=== PATIENT | male | born 1940 | race Asian ===

== ENCOUNTER 2018-12-28 14:40 | Inpatient (IN) | payer MEDICARE ==
[2018-12-28 15:37] LABS: % BASOPHILS 0.9 % (0.0-2.0); % EOSINOPHILS 1.7 % (0.0-5.0); % LYMPHOCYTES 31.8 % (20.0-50.0); % MONOCYTES 7.2 % (2.0-10.0); % NEUTROPHILS 58.4 % (40.0-80.0); EOSINOPHILE ABSOLUTE 0.1 Th/cmm (0.1-0.4); HEMATOCRIT 33.1 % (41.0-60); LYMPHOCYTE ABSOLUTE 1.7 Th/cmm (1.5-3.0); MEAN CELL VOLUME 94.3 fl (80-99); MEAN CORPUSCULAR HEMOGLOBIN 31.3 pg (27.0-31.0); MEAN CORPUSCULAR HGB CONC 33.2 pg (28.0-36.0); MEAN PLATELET VOLUME 6.5 fl; MONOCYTE ABSOLUTE 0.4 Th/cmm (0.3-1.0); NEUTROPHILE ABSOLUTE 3.2 Th/cmm (1.8-8.0); PLATELET COUNT 191 Th/cmm (150-400); RED BLOOD COUNT 3.51 Mil/cmm (3.80-5.80); RED CELL DISTRIBUTION WIDTH 12.1 % (11.5-20.0); WHITE BLOOD COUNT 5.4 Th/cmm (4.8-10.8)
--- NOTE | 2018-12-28 15:45 | ED Physician Chart ---
ED Chief Complaint/HPI - Patient Information Date Seen:: 12/28/18 Time Seen:: 14:40 Chief Complaint:: Depression History of Present Illness:: onset x 3 days of depression and sadness; no report of trauma, H/As, S/T, neck pain, cough, C/P, SIs, SOB, Abd. Pain, A/N/V/D/C, fever, chills, or urinary s/s Allergies:: Allergies Allergy/AdvReac Type Severity Reaction Status Date / Time No Known Allergies Allergy Verified 12/28/18 15:26 Vitals:: Vital Signs - 8 hr 12/28/18 14:40 Temp 98.4 F HR 69 RR 16 BP 140/70 O2 Sat % 97 Historian:: Patient, EMS Review:: Nurse's Note Reviewed, Old Chart Reviewed, EMS run form Reviewed ED Review of Systems - Review of Systems General/Constitutional: No fever, No chills, No weight loss, No weakness, No diaphoresis, No edema, No loss of appetite Skin: No skin lesions, No rash, No bruising Head: No headache, No light-headedness Eyes: No loss of vision, No pain, No diplopia ENT: No earache, No nasal drainage, No sore throat, No tinnitus Neck: No neck pain, No swelling, No thyromegaly, No stiffness, No mass noted Cardio Vascular: No chest pain, No palpitations, No PND, No orthopnea, No edema Pulmonary: No SOB, No cough, No sputum, No wheezing GI: No nausea, No vomiting, No diarrhea, No pain, No melena, No hematochezia, No constipation, No hematemesis G/U: No dysuria, No frequency, No hematuria, No nacturia Musculoskeletal: No bone or joint pain, No back pain, No muscle pain Endocrine: No polyuria, No polydipsia Psychiatric: Prior psych history, Depression, Anxiety, No suicidal ideation, No homicidal ideation, No auditory hallucination, No visual hallucination Hematopoietic: No bruising, No lymphadenopathy Allergic/Immuno: No urticaria, No angioedema Neurological: No syncope, No focal symptoms, No weakness, No paresthesia, No headache, Seizure, No dizziness, Confusion, No vertigo ED Past Medical History - Past Medical History Obtainable: Yes Past Medical History: HTN, Dyslipidemia, PUD/GERD, Seizures, Dementia Family History: HTN Social History: Non Smoker, No Alcohol, No Drug Use, Single, Care Facility Surgical History: None Psychiatricy History: Depression, Dementia Medication: Reviewed Family Medical History - Family Member Father History Unknown: Yes ED Physical Exam - Physical Examination General/Constitutional: Awake, Well-developed, well-nourished, Alert, No distress, GCS 15, Non-toxic appearing, Ambulatory Head: Atraumatic Eyes: Lids, conjuctiva normal, PERRL, EOMI Skin: Nl inspection, No rash, No skin lesions, No ecchymosis, Well hydrated, No lymphadenopathy ENMT: External ears, nose nl, TM canals nl, Nasal exam nl, Lips, teeth, gums nl , Oropharynx nl, Tonsils nl Neck: Nontender, Full ROM w/o pain, No JVD, No nuchal rigidity, No bruit, No mass, No stridor Respiratory: Nl effort/Exclusion, Clear to Auscultation, No Wheeze/Rhonchi/Rales Cardio Vascular: RRR, No murmur, gallop, rubs, NL S1 S2, Carotid/Femoral/Distal pulses equal bilaterally GI: No tenderness/rebounding/guarding, No organomegaly, No hernia, Normal BS's, Nondistended, No mass/bruits, No McBurney tenderness : No CVA tenderness Extremities: No tenderness or effusion, Full ROM, normal strength in all extremities, No edema, Normal digits & nails Neuro/Psych: Alert/oriented, DTR's symmetric, Normal sensory exam, Normal motor strength, Judgement/insight normal, Mood normal, Normal gait, No focal deficits Other Neuro/Psych comments:: Disoriented and Confused; + Psychomotor Retardation; no SIs; Mood/Affect: Stable Misc: Normal back, No paraspinal tenderness ED Labs/Radiology/EKG Results - Lab Results Results: Laboratory Tests 12/28/18 15:12 WBC 5.4 RBC 3.51 L Hgb 11.0 L Hct 33.1 L MCV 94.3 MCH 31.3 H MCHC Differential 33.2 RDW 12.1 Plt Count 191 MPV 6.5 Neutrophils % 58.4 Lymphocytes % 31.8 Monocytes % 7.2 Eosinophils % 1.7 Basophils % 0.9 - Radiology Results Comments:: NAD - EKG Interpretations EKG Time:: 15:39 Rate & Rhythm: 71; NSR Comments:: non-specific st-t changes ED Septic Shock - . Is Septic Shock (SBP<90, OR Lactate>4 mmol\L) present?: No - <6hrs of presentation: Vital Signs: Vital Signs - 8 hr 12/28/18 14:40 Temp 98.4 F HR 69 RR 16 BP 140/70 O2 Sat % 97 ED Reassessment (Disposition) - Reassessment Reassessment Condition:: Improved - Diagnosis Diagnosis:: Depression; Dementia; Medical Clearance; Hyperglycemia; Uncontrolled DM; Anemia ; Hyponatremia; Hypocalcemia; Renal Insuffiency; Pre-Renal Azotemia; Hypoalbuminemia; Dehydration - Aftercare/Follow up Instructions Aftercare/Follow-Up Instructions:: Counseled pt regarding lab results/diagnosis & need follow up, Counseled pt & family regarding lab results/diagnosis & need follow up - Patient Disposition Discharge/Transfer:: Acute Care w/in this hosp Accepting Physician:: Dr. Solares Time Called:: 1600 Time Responded:: 16:00 Admitted to:: Telemetry Spoke to:: Dr. Solares Admitting Medical Physician:: Dr. Solares Condition at Disposition:: Stable, Improved
[2018-12-28 15:51] LABS: ALB/GLOB RATIO 1.4 (1.0-1.8); ALBUMIN 3.7 gm/dL (4.2-5.5); ALKALINE PHOSPHATASE 66 U/L (34-104); ANION GAP 11.1 (7.0-16.0); BILIRUBIN,TOTAL 0.5 mg/dL (0.3-1.0); BUN - UREA NITROGEN 42 mg/dL (7-25); CALCIUM SERUM 8.5 mg/dL (8.6-10.3); CARBON DIOXIDE 27.5 mEq/L (21.0-31.0); CHLORIDE 99 mEq/L (98-107); CHOLESTEROL 163 mg/dL (<200); CREATININE - SERUM 3.4 mg/dL (0.7-1.3); GLUCOSE 429 mg/dL (70-105); HDL -HIGH DENSITY LIPOPROTEIN 70 mg/dL (23-92); POTASSIUM SERUM 4.6 mEq/L (3.5-5.1); SALICYLATES (ASPIRIN) < 25.0 mg/L (30.0-100.0); SGOT 16 U/L (13-39); SGPT/ALT 10 U/L (7-52); SODIUM SERUM 133 mEq/L (136-145); TOTAL PROTEIN,SERUM 6.3 gm/dL (6.0-8.3); TRIGLYCERIDES 107 mg/dL (<150)
[2018-12-28 16:01] LABS: ACETAMINOPHEN < 10.0 ug/mL (10.0-30.0)
[2018-12-28] MEDS ORDERED: INSULIN HUMAN REGULAR 100 UNITS/ML UNIT SUBQ ONE (16:34)
[2018-12-28] MEDS ORDERED: INSULIN HUMAN REGULAR 100 UNITS/ML UNIT ONE (17:38)
[2018-12-28] MEDS ORDERED: Dextrose 50% 50 mL Abboject IVP ONE ×2 (19:33→20:08)
[2018-12-28] MEDS ORDERED: Insulin Detemir 100 units/mL 10mL Vial SUBQ SCH (21:02)
[2018-12-28] MEDS ORDERED: INSULIN HUMAN REGULAR 100 UNITS/ML UNIT SUBQ SCH (21:02)
[2018-12-28 21:04] VITALS: BP 151/79
[2018-12-29] MEDS ORDERED: Dextrose 50% 50 mL Abboject IVP PRN (01:26)
[2018-12-29] MEDS ORDERED: GLUCAGON HCl 1 MG KIT IM PRN (01:26)
[2018-12-29 06:45] LABS: % BASOPHILS 0.8 % (0.0-2.0); % EOSINOPHILS 2.5 % (0.0-5.0); % LYMPHOCYTES 33.3 % (20.0-50.0); % MONOCYTES 6.5 % (2.0-10.0); % NEUTROPHILS 56.9 % (40.0-80.0); EOSINOPHILE ABSOLUTE 0.2 Th/cmm (0.1-0.4); HEMATOCRIT 33.1 % (41.0-60); HEMOGLOBIN 11.3 gm/dL (12-16); MEAN CELL VOLUME 92.4 fl (80-99); MEAN CORPUSCULAR HEMOGLOBIN 31.6 pg (27.0-31.0); MEAN CORPUSCULAR HGB CONC 34.2 pg (28.0-36.0); MEAN PLATELET VOLUME 6.3 fl; MONOCYTE ABSOLUTE 0.4 Th/cmm (0.3-1.0); NEUTROPHILE ABSOLUTE 3.4 Th/cmm (1.8-8.0); PLATELET COUNT 197 Th/cmm (150-400); RED BLOOD COUNT 3.58 Mil/cmm (3.80-5.80)
[2018-12-29 07:01] LABS: ALB/GLOB RATIO 1.4 (1.0-1.8); ALBUMIN 3.9 gm/dL (4.2-5.5); ALKALINE PHOSPHATASE 56 U/L (34-104); ANION GAP 12.2 (7.0-16.0); BILIRUBIN,TOTAL 0.6 mg/dL (0.3-1.0); BUN - UREA NITROGEN 39 mg/dL (7-25); CARBON DIOXIDE 28.3 mEq/L (21.0-31.0); CHLORIDE 105 mEq/L (98-107); CHOLESTEROL 164 mg/dL (<200); CREATININE - SERUM 3.2 mg/dL (0.7-1.3); HDL -HIGH DENSITY LIPOPROTEIN 75 mg/dL (23-92); POTASSIUM SERUM 4.5 mEq/L (3.5-5.1); SGOT 16 U/L (13-39); SGPT/ALT 9 U/L (7-52); SODIUM SERUM 141 mEq/L (136-145); TOTAL PROTEIN,SERUM 6.6 gm/dL (6.0-8.3); TRIGLYCERIDES 85 mg/dL (<150)
[2018-12-29 07:08] LABS: GLUCOSE 188 mg/dL (70-105)
--- NOTE | 2018-12-29 08:20 | Diagnostic Imaging Report ---
Chest x-ray single view History: ALOC Comparison: None The heart size is normal. No focal pulmonary parenchymal processes. No hilar or mediastinal abnormalities. Impression: No acute abnormalities
[2018-12-29] MEDS: INSULIN ASPART SLIDING SCALE 100 UNITS/ML UNIT SUBQ SCH ×4 (08:21→20:59)
[2018-12-29 08:31] LABS: URINE SOURCE CLEAN C
[2018-12-29 08:37] LABS: URINE BILIRUBIN NEGATIVE (NEGATIVE); URINE BLOOD TRACE (NEGATIVE); URINE GLUCOSE (UA) 500 mg/dL (NEGATIVE); URINE KETONE NEGATIVE (NEGATIVE); URINE LEUKOCYTE ESTERASE NEGATIVE (NEGATIVE); URINE MICROSCOPIC INDICATED? YES; URINE NITRATE NEGATIVE (NEGATIVE); URINE PROTEIN 100 mg/dL (NEGATIVE); URINE UROBILINOGEN 0.2 E.U./dL (0.2 - 1.0)
[2018-12-29 08:46] LABS: URINE CLARITY CLEAR (CLEAR); URINE COLOR YELLOW
[2018-12-29 08:47] LABS: URINE BACTERIA NONE SEEN /hpf (NONE SEEN); URINE EPITHELIAL CELLS RARE /lpf (FEW); URINE RBC 0-2 /hpf (0-5); URINE WBC 0-2 /hpf (0-5)
[2018-12-29 08:49] LABS: AMPHETAMINE URINE NEGATIVE (NEGATIVE); BARBITURATES URINE NEGATIVE (NEGATIVE); BENZODIAZEPINES QUAL URINE POSITIVE (NEGATIVE); CANNABINOID THC NEGATIVE (NEGATIVE); COCAINE METABOLITE QUAL URINE NEGATIVE (NEGATIVE); METHADONE URINE NEGATIVE (NEGATIVE); METHAMPHETAMINES QUAL URINE NEGATIVE (NEGATIVE); OPIATES (MORPHINE) QUAL. URINE NEGATIVE (NEGATIVE); PHENCYCLIDINE (PCP) URINE NEGATIVE (NEGATIVE); TRICYCLICS (TCA) QUAL. URINE NEGATIVE (NEGATIVE)
--- NOTE | 2018-12-29 08:53 | Consultation ---
DATE OF CONSULTATION: 12/29/2018 PSYCHIATRIC EVALUATION AND EXAMINATION PHYSICIAN REQUESTING CONSULTATION: Dr. Solares. REASON FOR CONSULTATION: Depression and psychosis. HISTORY OF PRESENT ILLNESS: This patient is a 78-year-old male, resident of [facility] in [place]. Information obtained by directly interviewing the patient as well as reviewing the admission papers and they are reliable. JUSTIFICATION OF HOSPITALIZATION: The patient is admitted for uncontrolled diabetes. HISTORY OF PRESENT ILLNESS: Is significant for the patient is reported to have been feeling depressed at least for the past 1 year. The patient is having difficult time to cope with the stress and the patient has been getting easily irritable and angry and is talking about the Armenians that have been bothering him. The patient is stating that he is getting depressed because of the Armenians because of they gave him a hard time. The patient's coping skills at this time are noted to be extremely poor. Sleep is noted to be poor. Appetite is also noted to be very poor. PAST PSYCHIATRIC HISTORY: Details are not known. MEDICAL HISTORY: Significant for diabetes mellitus. SOCIAL HISTORY: The patient is a resident of the [facility] facility. SEXUAL ABUSE HISTORY: None. PHYSICAL OR SEXUAL ABUSE HISTORY: None. LEGAL PROBLEMS: None at this time. MENTAL STATUS EXAMINATION: The patient is a 78-year-old, looking his stated age, superficially cooperative. Speech is noted to be coherent and relevant, but is getting easily irritable. Attention span and concentration are noted to be fair at this time. The patient's coping skills are noted to be extremely poor. The patient has short-term and long-term memory deficit, but the patient is able to give some history, but he is focused on the Armenians at this time. The patient is not presenting with any threats to harm self or others. DIAGNOSTIC IMPRESSION: AXIS I: Major depressive disorder, recurrent and moderate, with psychotic symptoms. IB: Dementia and behavioral change, secondary trait. AXIS II: None. AXIS III: As per Dr. Solares. IMMEDIATE TREATMENT PLAN: The patient is going to be continued on the Lexapro and Aricept and Namenda. The patient is going to be started on the low dose of the Seroquel and followed up with the supportive therapy. Thank you, Dr. Solares for allowing me to participate in the care of the patient. JOB# [id number]
[2018-12-29] MEDS ORDERED: Ferrous Sulfate 325 MG TAB PO SCH (09:00)
[2018-12-29] MEDS ORDERED: Sodium Chloride 0.9% 1,000 ML IV SCH (09:11)
--- NOTE | 2018-12-29 10:23 | Diagnostic Imaging Report ---
Renal ultrasound HISTORY: Abnormal renal function tests. COMPARISON: None Technique: Sonography of the kidneys and urinary bladder was performed in multiple planes. FINDINGS: The right kidney measures 8.1 x 3.7 cm. The left kidney measures 9.1 x 4.7 cm. There is mild increased echogenicity of the kidneys. No evidence of focal lesions. Prevoid bladder volume is 97 mL. There is suggestion of mild urinary bladder wall thickening. IMPRESSION: No evidence of hydronephrosis. Mild increased echogenicity of the kidneys which may be due to underlying medical renal disease. Mild urinary bladder wall thickening. Inflammatory or infiltrative process cannot be excluded. Please correlate clinically. Prevoid bladder volume of 97 mL. Patient was unable to void.
--- NOTE | 2018-12-29 13:34 | History & Physical ---
ADMIT DATE: 12/28/2018 CHIEF COMPLAINT: Depression. HISTORY OF PRESENT ILLNESS: The patient is a 78-year-old gentleman who resides at [facility] with history of type 2 diabetes without complications, hyperlipidemia, essential hypertension, unspecified dementia without behavioral disturbance, seizure disorder, generalized anxiety, and major depressive disorder, insomnia, who apparently was noted to be depressed for the last few days at the facility. The patient was transferred for possible Geropsych admission; however, on initial assessment, he was noted to have a glucose level of 429 and a BUN and creatinine of 42/3.4. Per medical records, there is no history of renal insufficiency and per patient's account, there is also no history of renal issues. The patient has been admitted to the medical/surgical floor to control his diabetes and to workup his renal insufficiency. The patient appears to be comfortable, able to carry a conversation and denies any anxiety or depression at this time. He also denies any suicidal ideation. PAST MEDICAL HISTORY: As noted above. PAST SURGICAL HISTORY: None listed. FAMILY HISTORY: Likely noncontributory to this admission. SOCIAL HISTORY: No tobacco, ETOH, or illicit drug usage. [facility] at the detention under the care of Dr. Elkins. ALLERGIES: NKDA. OUTPATIENT MEDICATIONS: Clonidine 0.1 q.6 hours, Colace 100 mg every day, Aricept 10 at bedtime, Lexapro 10 every day, fenofibrate 54 mg every day, iron sulfate 325 b.i.d., Keppra 500 mg b.i.d., lorazepam 0.5 b.i.d., Namenda XR 7 mg at bedtime. REVIEW OF SYSTEMS: CONSTITUTIONAL: He denies any fever, chills, any recent weight loss. CARDIOVASCULAR: He denies any angina or chest pain. He also denies any palpitations. PULMONARY: No cough, no phlegm production. Denies any shortness of breath. GASTROINTESTINAL: No bowel habit changes. GENITOURINARY: No bladder habit changes. NEUROLOGIC: No changes in vision, no headaches. Denies any syncope or vertigo. MUSCULOSKELETAL: He denies any muscular pain or joint pain. PSYCH: Again, he denies any current depression, suicidal ideation, or anxiety. PHYSICAL EXAMINATION: VITAL SIGNS: Temperature 96.7, pulse 78-85, respirations 18-19, BP 132/76, satting 97-98% on room air. GENERAL: Well-developed, thin gentleman, lying in bed, currently undergoing a renal ultrasound. He is awake, alert and oriented x 2, able to answer questions appropriately. HEAD AND NECK: Normocephalic, atraumatic. Pupils are reactive to light. Extraocular movements are intact. Oropharynx is moist and clear. NECK: There is no JVD or LAD. CARDIAC: Regular rate and rhythm without any murmurs. LUNGS: Clear to auscultation bilaterally. ABDOMEN: Soft, supple, nontender, nondistended, normoactive bowel sounds. EXTREMITIES: Lower extremity, there is no pedal edema. NEUROLOGIC: Grossly intact, nonfocal, although full exam could not be done at this time. LABORATORY DATA: On admission, white count 5.4, H and H 11 with a platelet count of 191. Sodium 133, BUN 42, creatinine 3.4, glucose 329, otherwise chemistry was within normal limits. Calcium 8.5. LFTs were within normal limits. Albumin 3.7. TSH 1.16. UA was positive for protein and glucose. Urine toxicology was essentially negative. DIAGNOSTICS: Chest x-ray shows no acute abnormalities. EKG, sinus rhythm at 71, no ST wave changes. ASSESSMENT: 1. History of type 2 diabetes, currently out of control. 2. Renal insufficiency -- likely chronic in nature given his history of diabetes and hypertension (diabetic and hypertensive nephropathy), versus less likely 2ry to acute onset 2ry to dehydration. 3. Hyponatremia. 4. Anemia. 5. Proteinuria. 6. History of hyperlipidemia. 7. History of unspecified dementia without behavioral disturbance. 8. History of seizure disorder. 9. History of generalized anxiety. 10. History of major depressive disorder. PLAN: The patient has been admitted to the medical floor and has been placed on IV fluids and will undergo renal workup including kidney ultrasound and a 24-hour urine collection for protein and creatinine. I have also placed the patient on detemir insulin 10 units at bedtime with a regular insulin sliding scale. An A1c and lipid panel also have been asked for. In the interim, the patient will remain on his other medications as scheduled and given his history of recent depression, a Psychiatry consult will be asked for as well as a renal consult given the above-mentioned findings (i.e., renal insufficiency). [facility]# [id number] MTDD
[2018-12-29] MEDS ORDERED: MEMANTINE HCL 7 MG PO SCH (21:00)
[2018-12-29] MEDS: D5-0.45NS 1,000 ML IV SCH (21:06)
[2018-12-30 05:54] LABS: % BASOPHILS 1.2 % (0.0-2.0); % EOSINOPHILS 3.1 % (0.0-5.0); % LYMPHOCYTES 39.7 % (20.0-50.0); % MONOCYTES 6.9 % (2.0-10.0); % NEUTROPHILS 49.1 % (40.0-80.0); BASOPHILE ABSOLUTE 0.1 Th/cumm (0-0.2); EOSINOPHILE ABSOLUTE 0.2 Th/cmm (0.1-0.4); HEMATOCRIT 31.2 % (41.0-60); HEMOGLOBIN 10.6 gm/dL (12-16); LYMPHOCYTE ABSOLUTE 2.2 Th/cmm (1.5-3.0); MEAN CELL VOLUME 92.9 fl (80-99); MEAN CORPUSCULAR HEMOGLOBIN 31.6 pg (27.0-31.0); MEAN PLATELET VOLUME 6.3 fl; MONOCYTE ABSOLUTE 0.4 Th/cmm (0.3-1.0); NEUTROPHILE ABSOLUTE 2.7 Th/cmm (1.8-8.0); PLATELET COUNT 197 Th/cmm (150-400); RED BLOOD COUNT 3.36 Mil/cmm (3.80-5.80); RED CELL DISTRIBUTION WIDTH 12.1 % (11.5-20.0); WHITE BLOOD COUNT 5.6 Th/cmm (4.8-10.8)
[2018-12-30] MEDS: INSULIN ASPART SLIDING SCALE 100 UNITS/ML UNIT SUBQ SCH (06:34)
[2018-12-30] MEDS: D5-0.45NS 1,000 ML IV SCH (06:56)
[2018-12-30] MEDS: Fenofibrate, Micronized 134 mg Cap PO SCH (08:12)
[2018-12-30 08:26] LABS: ANION GAP 13.2 (7.0-16.0); BUN - UREA NITROGEN 40 mg/dL (7-25); CALCIUM SERUM 8.3 mg/dL (8.6-10.3); CARBON DIOXIDE 25.8 mEq/L (21.0-31.0); CHLORIDE 106 mEq/L (98-107); GLUCOSE 126 mg/dL (70-105); MAGNESIUM 2.3 mg/dL (1.9-2.7); SODIUM SERUM 141 mEq/L (136-145)
--- NOTE | 2018-12-30 11:47 | Internal Medicine Prog Note ---
Internal Medicine Subjective - Subjective Service Date: 12/30/18 (COMFORTABLE, PER STAFF, PT EATING WELL) Patient seen and examined:: with staff Patient is:: awake Per staff patient has:: no adverse event, eating well Internal Medicine Objective - Results Result Diagrams: 12/30/18 05:14 12/30/18 05:14 Recent Labs: Laboratory Last Values WBC 5.6 Th/cmm (4.8-10.8) 12/30/18 05:14 RBC 3.36 Mil/cmm (3.80-5.80) L 12/30/18 05:14 Hgb 10.6 gm/dL (12-16) L 12/30/18 05:14 Hct 31.2 % (41.0-60) L 12/30/18 05:14 MCV 92.9 fl (80-99) 12/30/18 05:14 MCH 31.6 pg (27.0-31.0) H 12/30/18 05:14 MCHC Differential 34.0 pg (28.0-36.0) 12/30/18 05:14 RDW 12.1 % (11.5-20.0) 12/30/18 05:14 Plt Count 197 Th/cmm (150-400) 12/30/18 05:14 MPV 6.3 fl 12/30/18 05:14 Neutrophils % 49.1 % (40.0-80.0) 12/30/18 05:14 Lymphocytes % 39.7 % (20.0-50.0) 12/30/18 05:14 Monocytes % 6.9 % (2.0-10.0) 12/30/18 05:14 Eosinophils % 3.1 % (0.0-5.0) 12/30/18 05:14 Basophils % 1.2 % (0.0-2.0) 12/30/18 05:14 Sodium 141 mEq/L (136-145) 12/30/18 05:14 Potassium 4.0 mEq/L (3.5-5.1) 12/30/18 05:14 Chloride 106 mEq/L (98-107) 12/30/18 05:14 Carbon Dioxide 25.8 mEq/L (21.0-31.0) 12/30/18 05:14 Anion Gap 13.2 (7.0-16.0) 12/30/18 05:14 BUN 40 mg/dL (7-25) H 12/30/18 05:14 Creatinine 3.0 mg/dL (0.7-1.3) H 12/30/18 05:14 Est GFR ( Amer) TNP 12/30/18 05:14 Est GFR (Non-Af Amer) TNP 12/30/18 05:14 BUN/Creatinine Ratio 13.3 12/30/18 05:14 Glucose 126 mg/dL (70-105) H 12/30/18 05:14 POC Glucose 140 MG/DL (70 - 105) H 12/30/18 05:50 Calcium 8.3 mg/dL (8.6-10.3) L 12/30/18 05:14 Magnesium 2.3 mg/dL (1.9-2.7) 12/30/18 05:14 Total Bilirubin 0.6 mg/dL (0.3-1.0) 12/29/18 06:01 AST 16 U/L (13-39) 12/29/18 06:01 ALT 9 U/L (7-52) 12/29/18 06:01 Alkaline Phosphatase 56 U/L (34-104) 12/29/18 06:01 Troponin I 0.01 ng/mL (0.01-0.05) 12/28/18 15:12 Total Protein 6.6 gm/dL (6.0-8.3) 12/29/18 06:01 Albumin 3.9 gm/dL (4.2-5.5) L 12/29/18 06:01 Globulin 2.7 gm/dL 12/29/18 06:01 Albumin/Globulin Ratio 1.4 (1.0-1.8) 12/29/18 06:01 Triglycerides 85 mg/dL (<150) 12/29/18 06:01 Cholesterol 164 mg/dL (<200) 12/29/18 06:01 LDL Cholesterol Direct 74 mg/dL (75-193) L 12/29/18 06:01 HDL Cholesterol 75 mg/dL (23-92) 12/29/18 06:01 TSH 1.16 uIU/ml (0.34-5.60) 12/28/18 15:12 Urine Source CLEAN C 12/29/18 08:15 Urine Color YELLOW 12/29/18 08:15 Urine Clarity CLEAR (CLEAR) 12/29/18 08:15 Urine pH 6.0 (4.6 - 8.0) 12/29/18 08:15 Ur Specific [place] 1.025 (1.005-1.030) 12/29/18 08:15 Urine Protein 100 mg/dL (NEGATIVE) H 12/29/18 08:15 Urine Glucose (UA) 500 mg/dL (NEGATIVE) H 12/29/18 08:15 Urine Ketones NEGATIVE mg/dL (NEGATIVE) 12/29/18 08:15 Urine Blood TRACE (NEGATIVE) 12/29/18 08:15 Urine Nitrate NEGATIVE (NEGATIVE) 12/29/18 08:15 Urine Bilirubin NEGATIVE (NEGATIVE) 12/29/18 08:15 Urine Urobilinogen 0.2 E.U./dL (0.2 - 1.0) 12/29/18 08:15 Ur Leukocyte Esterase NEGATIVE (NEGATIVE) 12/29/18 08:15 Urine RBC 0-2 /hpf (0-5) H 12/29/18 08:15 Urine WBC 0-2 /hpf (0-5) 12/29/18 08:15 Ur Epithelial Cells RARE /lpf (FEW) 12/29/18 08:15 Urine Bacteria NONE SEEN /hpf (NONE SEEN) 12/29/18 08:15 Urine Creatinine 102.0 mg/dl (39.0-259.0) 12/29/18 08:15 Salicylates < 25.0 mg/L (30.0-100.0) L 12/28/18 15:12 Urine Opiates Screen NEGATIVE (NEGATIVE) 12/29/18 08:15 Urine Methadone Screen NEGATIVE (NEGATIVE) 12/29/18 08:15 Acetaminophen < 10.0 ug/mL (10.0-30.0) L 12/28/18 15:12 Ur Barbiturates Screen NEGATIVE (NEGATIVE) 12/29/18 08:15 Ur Tricyclics Screen NEGATIVE (NEGATIVE) 12/29/18 08:15 Ur Phencyclidine Scrn NEGATIVE (NEGATIVE) 12/29/18 08:15 Amphetamines Screen NEGATIVE (NEGATIVE) 12/29/18 08:15 U Methamphetamines Scrn NEGATIVE (NEGATIVE) 12/29/18 08:15 U Benzodiazepines Scrn POSITIVE (NEGATIVE) H 12/29/18 08:15 U Cocaine Metab Screen NEGATIVE (NEGATIVE) 12/29/18 08:15 U Cannabinoids Screen NEGATIVE (NEGATIVE) 12/29/18 08:15 Ethyl Alcohol < 10 mg/dL (0-10) 12/28/18 15:12 Serum Ketones NEGATIVE (NEGATIVE) 12/28/18 15:12 - Physical Exam Vitals and I&O: Vital Signs Temp 96.8 F 12/30/18 08:20 Pulse 74 12/30/18 08:20 Resp 17 12/30/18 08:20 BP 160/78 12/30/18 08:20 Pulse Ox 97 12/30/18 08:20 Intake & Output 12/29/18 12/30/18 12/30/18 18:59 06:59 18:59 Intake Total 600 857.5 Balance 600 857.5 Weight (lbs) 56.699 kg 56.699 kg Intake: Intake, IV Amount 737.5 D5-0.45NS 1,000 ml @ 75 737.5 mls/hr IV .[id number] REPLACED BY [facility] Rx #:[id number] Oral 600 120 Other: # Voids 4 4 Weight Source Bedscale Bedscale Active Medications: Current Medications Dextrose (D50w) 50 ml IVP PRN PRN PRN Reason: Blood Glucose less than 70 Stop: 02/27/19 01:25 Dextrose (Glutose 40%) 18.75 gm PO PRN PRN PRN Reason: BS below 70 & tolerate po Stop: 02/27/19 01:25 Docusate Sodium (Colace) 100 mg PO DAILY PRN PRN Reason: Constipation Stop: 02/26/19 23:23 Donepezil HCl (Aricept) 10 mg PO [facility] Stop: 02/27/19 20:59 Last Admin: 12/29/18 21:04 Dose: 10 mg Escitalopram Oxalate (Lexapro) 10 mg PO DAILY REPLACED BY [facility]; Protocol Stop: 02/27/19 08:59 Last Admin: 12/30/18 08:12 Dose: 10 mg Fenofibrate (Tricor) 134 mg PO DAILY REPLACED BY [facility] Stop: 02/28/19 08:59 Last Admin: 12/30/18 08:12 Dose: 134 mg Glipizide (Glucotrol) 10 mg PO BID REPLACED BY [facility] Stop: 02/27/19 08:59 Last Admin: 12/30/18 08:12 Dose: 10 mg Glucagon (Glucagen) 1 mg IM PRN PRN PRN Reason: Blood Glucose less than 70 Stop: 02/27/19 01:25 Dextrose/Sodium Chloride (D5-0.45ns) 1,000 mls @ 75 mls/hr IV .[id number] REPLACED BY [facility] Stop: 02/27/19 18:29 Last Admin: 12/30/18 06:56 Dose: 75 mls/hr Insulin Aspart (Novolog Insulin Sliding Scale) 0 units SUBQ ACHS REPLACED BY [facility]; Protocol Stop: 02/27/19 07:29 Last Admin: 12/30/18 06:34 Dose: Not Given Levetiracetam (Keppra) 500 mg PO BID REPLACED BY [facility] Stop: 02/26/19 23:29 Last Admin: 12/30/18 08:12 Dose: 500 mg Lorazepam (Ativan) 0.5 mg PO BID PRN; Protocol PRN Reason: Anxiety Stop: 01/04/19 23:25 Memantine (Namenda) 10 mg PO BIDPC REPLACED BY [facility] Stop: 02/27/19 08:29 Last Admin: 12/30/18 08:13 Dose: 10 mg Miscellaneous (Clinical Monitoring) 1 ea MC DAILY PRN PRN Reason: RENAL DOSING Stop: 02/27/19 15:00 Quetiapine Fumarate (Seroquel) 12.5 mg PO HS REPLACED BY [facility]; Protocol Stop: 02/27/19 20:59 Last Admin: 12/29/18 21:03 Dose: 12.5 mg General: NAD HEENT: NC/AT, PERRLA Neck: Supple, No JVD, No LAD Lungs: CTAB Cardiovascular: RRR, Normal S1, Normal S2, without murmur Abdomen: soft, non-tender, non-distended, positive bowel sound Internal Medicine Assmt/Plan - Assessment Assessment: [id number] BUT REMAINS LABILE LIKELY CRI 2RY TO DIABETIC/HYPERTENSIVE NEPHROPATHY HYPONATREMIA HX OF ANEMIA LIKELY 2RY TO CRI HX OF DYSLIPIDIMIA HX OF SEIZURE D/O-ASYMPTOMATIC HX OF DEMENTIA WITHOUT BEHAVIORAL D/O HX OF ANXIETY AND DEPRESSION WITH RECENT DEPRESSIVE MOOD - Plan Plan: CONT WITH IVF-D51/2 @ 75CC/HOUR CONT WITH GLIPIZIDE 10MG BID RESTART LEVIMIR @ 5U QHS CONT WITH OTHER MEDS SCHEDULED MONITOR RENAL FUNCTION NEPHRO/PSYCH FU Nutritional Asmnt/Malnutr-PDOC - Dietary Evaluation Malnutrition Findings (Please click <Entered> for more info): Nutritional Asmnt/Malnutrition Start: 12/29/18 15: 42 Text: Status: Complete Freq: Protocol: Document 12/29/18 15:42 [email or web address] (Rec: 12/29/18 15:55 LCEVGENYG RICHARD-FN) Nutritional Asmnt/Malnutrition Patient General Information Nutritional Screening High Risk Diagnosis diabetes uncontrolled Pertinent Medical Hx/Surgical Hx HTN, hyslipidemia, PUD/GERD, seizure, dementia, depression Subjective Information Pt seen sitting up in bed at time of visit, awake and somewhat confused. Food preference given to RD. Per EMR, PO intake 100%. Gluocse 429 at admission noted. Current Diet Order/ Nutrition Support [facility] Pertinent Medications colace, glucotrol, novolog, levmire, seroquel, nacl 0.9% Pertinent Labs 12/29 BUN 39, Cr 3.2, Gluocse 188, POC 167-209 Nutritional Hx/Data Height 1.7 m Height (Calculated Centimeters) 170.2 Current Weight (lbs) 56.699 kg Weight (Calculated Kilograms) 56.7 Weight (Calculated Grams) 66490.0 [place] Body Weight 148 Body Mass Index (BMI) 19.5 GI Symptoms GI Symptoms None Last BM not indicated Difficult in: None Skin Integrity/Comment: intact Current %PO Good (75-100%) Estimated Nutritional Goals BEE in Kcals: Using Current wt Calories/Kcals/Kg 27-32 Kcals Calculated [id number] Protein: Using Current wt Protein g/k-1.2 Protein Calculated 57-68 Fluid: ml 1539-1824ml (1ml/kcal) Nutritional Problem 1. Problem Problem altered nutrition related labs Etiology hyperglycemia Signs/Symptoms: Gluocse 188, POC 167-209 Malnutrition Alert Is there a minimum of two criteria No selected? Query Text:Check all the applicable criteria. A minimum of two criteria are recommended for diagnosis of either severe or non-severe malnutrition. Malnutrition Related to Morbid Obesity Malnutrition related to morbid obesity No Intervention/Recommendation Comments 1. Continue with [facility] diet as ordered. 2. Monitor PO intake, wt, labs and skin integrity 3. F/U as moderate risk in 3-5 days Expected Outcomes/Goals Expected Outcomes/Goals 1. PO intake to meet at least 75% of nutritional needs. 2. Wt stability, skin to remain intact, labs to approach WNL.
[2018-12-30] MEDS: Insulin Glargine 100 units/ml 10ml Vial SUBQ SCH (12:39)
[2018-12-30] MEDS: INSULIN LISPRO SLIDING SCALE 100 UNITS/ML UNIT SUBQ SCH ×2 (16:08→22:45)
--- NOTE | 2018-12-31 03:03 | Consultation ---
DATE OF CONSULTATION: 12/30/2018 ATTENDING PHYSICIAN: Mary Solares M.D. AUTO RENTAL SUPERVISOR: Eric Horowitz M.D. REASON FOR CONSULTATION: Worsening kidney function, electrolyte imbalance, and fluid management. HISTORY OF PRESENT ILLNESS: This is a 78-year-old male with past medical history of type 2 diabetes mellitus who came in because of uncontrolled blood sugar. A few hours prior to admission, the patient threatened to "kill myself" and wants to . He was on Lexapro as well as lorazepam. Due to his behavior, he was brought to the Emergency Room for possible admission to [facility]. However, labs drawn revealed a blood sugar of 429 with a BUN/creatinine of 42/3.4. Renal ultrasound reveals small sized kidneys with increased echogenicity on chest x-ray. The patient was admitted for further evaluation and management. His latest BUN/creatinine after hydration was 40/3. He denied any nausea and vomiting, diarrhea. However, appetite had been poor lately. PAST MEDICAL HISTORY: 1. Type 2 diabetes mellitus. 2. Dyslipidemia. 3. Dementia without behavioral disturbance. 4. Depression/anxiety. 5. Epilepsy. 6. Essential hypertension. CURRENT MEDICATIONS: He is currently on clonidine, docusate sodium, escitalopram, fenofibrate, glipizide, Keppra, Ativan, Namenda, metoprolol, quetiapine. ALLERGIES: No known drug allergies. 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 He denied any history of smoking or alcohol consumption. He now resides at a custodial facility. FAMILY HISTORY: Noncontributory to present illness. REVIEW OF SYSTEMS: CONSTITUTIONAL: He has occasional weakness. Appetite had been fair. No fever or chills. HEENT: No mention of headaches, no dizziness. Vision and hearing acuity has diminished due to age. CARDIORESPIRATORY: He has a history of hypertension. At this point, he does not have any shortness of breath, chest pain, palpitations, diaphoresis, or cough. GASTROINTESTINAL: No nausea and vomiting, abdominal pain or cramping, hematemesis, melena, hematochezia, nor diarrhea. ENDOCRINE: Has a history of diabetes and dyslipidemia. No thyroid abnormalities. MUSCULOSKELETAL: Multiple joint arthralgias. GENITOURINARY: No history of dysuria, no hematuria. However, he has chronic kidney disease. HEMATOLOGIC: He has anemia of chronic disease. NEUROPSYCHIATRIC: No syncopal episode. No seizure activity. However, he has a history of epilepsy, depression/anxiety as well as dementia. PHYSICAL EXAMINATION: GENERAL: The patient is awake, cooperative, but slow mentation. VITAL SIGNS: Blood pressure is 159/75, pulse 80, temperature 97.2 degrees. SKIN: Poor turgor, warm. No rash, no jaundice appreciated. HEENT: Head: Normocephalic, atraumatic. Eyes: Extraocular muscles are intact. Pupils equal, round, reactive to light and accommodates. Anicteric sclerae. Pale conjunctivae. Nose: Midline nasal septum. Mouth: Moist mucosa with adequate dentition. NECK: Supple. No adenopathy, no thyromegaly, no bruits. Trachea palpated in the midline. CHEST AND CARDIOVASCULAR: S1, S2. No rub, murmur nor gallop appreciated. Point of maximal impulse, fifth intercostal space, left midclavicular line. No abdominal or femoral bruits appreciated. LUNGS: Equal expansion. No use of accessory muscles. No supraclavicular retractions, decreased breath sounds. Clear to auscultation without any wheeze. ABDOMEN: Flat, soft, positive for bowel sounds. No bruits either diastolic or systolic. RECTAL: Lax sphincter tone. GENITOURINARY: Normal appearing male genitalia. MUSCULOSKELETAL: No effusions present in his joints with adequate range of motion. EXTREMITIES: No evidence of edema, cyanosis nor clubbing with palpable femoral, popliteal and dorsalis pedis pulses. NEUROLOGIC: The patient is awake but due to his history of dementia, he was not able to follow my neuro commands and I was not able to pursue further my neuro exam. LABORATORY STUDIES: Did reveal white count of 5.6, hemoglobin 10.6, hematocrit 31.2, platelets are 197. Sodium 141, potassium 4, chloride 106, CO2 is 25, BUN 40, creatinine 3, glucose 126. IMPRESSION: 1. Chronic kidney disease. The patient has no history of chronic kidney disease based on his paperwork from the custodial. However, renal ultrasound revealed small size kidneys with increased echogenicity suggestive of underlying chronic kidney disease. He also has mild to moderate anemia, which may be due to underlying chronic disease. Thus, his chronic kidney disease may possibly be due to diabetic nephropathy with longstanding history of diabetes. However, he may also have some underlying hypertensive nephrosclerosis with history of hypertension. 2. Type 2 diabetes mellitus, out of control. 3. Essential hypertension with chronic kidney disease. 4. Dyslipidemia. 5. Dementia without behavioral disturbance. 6. Depression/anxiety. 7. Epilepsy. PLAN: 1. Continue with gentle hydration. 2. Urine sodium, eosinophils, and creatinine. 3. Urine microalbumin to creatinine ratio. 4. Check a hemoglobin A1c. Thank you, Dr. Solares, for this consult. We will follow the patient closely with you. JOB# [id number]
[2018-12-31] MEDS: INSULIN LISPRO SLIDING SCALE 100 UNITS/ML UNIT SUBQ SCH ×2 (06:30→12:23)
[2018-12-31 06:40] LABS: % EOSINOPHILS 2.8 % (0.0-5.0); % LYMPHOCYTES 26.4 % (20.0-50.0); % MONOCYTES 5.5 % (2.0-10.0); % NEUTROPHILS 64.3 % (40.0-80.0); BASOPHILE ABSOLUTE 0.1 Th/cumm (0-0.2); EOSINOPHILE ABSOLUTE 0.2 Th/cmm (0.1-0.4); HEMATOCRIT 36.1 % (41.0-60); HEMOGLOBIN 11.9 gm/dL (12-16); MEAN CELL VOLUME 93.6 fl (80-99); MEAN CORPUSCULAR HEMOGLOBIN 30.9 pg (27.0-31.0); MEAN PLATELET VOLUME 6.2 fl; MONOCYTE ABSOLUTE 0.4 Th/cmm (0.3-1.0); NEUTROPHILE ABSOLUTE 4.7 Th/cmm (1.8-8.0); PLATELET COUNT 180 Th/cmm (150-400); RED BLOOD COUNT 3.86 Mil/cmm (3.80-5.80); RED CELL DISTRIBUTION WIDTH 12.1 % (11.5-20.0); WHITE BLOOD COUNT 7.4 Th/cmm (4.8-10.8)
[2018-12-31 06:55] LABS: ANION GAP 14.4 (7.0-16.0); BUN - UREA NITROGEN 36 mg/dL (7-25); CALCIUM SERUM 8.2 mg/dL (8.6-10.3); CARBON DIOXIDE 20.3 mEq/L (21.0-31.0); CHLORIDE 109 mEq/L (98-107); CREATININE - SERUM 2.7 mg/dL (0.7-1.3); GLUCOSE 177 mg/dL (70-105); MAGNESIUM 2.5 mg/dL (1.9-2.7); PHOSPHOROUS 3.4 mg/dL (2.5-5.0); POTASSIUM SERUM 4.7 mEq/L (3.5-5.1); SODIUM SERUM 139 mEq/L (136-145); URIC ACID 4.1 mg/dL (4.4-7.6)
[2018-12-31] MEDS: Fenofibrate, Micronized 134 mg Cap PO SCH (09:41)
[2018-12-31] MEDS: Insulin Glargine 100 units/ml 10ml Vial SUBQ SCH (09:43)
[2018-12-31] MEDS ORDERED: Sodium Chloride 0.9% 1,000 ML IV SCH (10:03)
--- NOTE | 2018-12-31 10:05 | Internal Medicine Prog Note ---
Internal Medicine Subjective - Subjective Service Date: 12/31/18 (PER STAFF, PT HAD POSSIBLE SYNCOPAL EPISODE LAST NIGHT- HE CANT RECALL) Patient seen and examined:: without staff Patient is:: awake Per staff patient has:: no adverse event, eating well Internal Medicine Objective - Results Result Diagrams: 12/31/18 06:26 12/31/18 06:26 Recent Labs: Laboratory Last Values WBC 7.4 Th/cmm (4.8-10.8) 12/31/18 06:26 RBC 3.86 Mil/cmm (3.80-5.80) 12/31/18 06:26 Hgb 11.9 gm/dL (12-16) L 12/31/18 06:26 Hct 36.1 % (41.0-60) L 12/31/18 06:26 MCV 93.6 fl (80-99) 12/31/18 06:26 MCH 30.9 pg (27.0-31.0) 12/31/18 06:26 MCHC Differential 33.0 pg (28.0-36.0) 12/31/18 06:26 RDW 12.1 % (11.5-20.0) 12/31/18 06:26 Plt Count 180 Th/cmm (150-400) 12/31/18 06:26 MPV 6.2 fl 12/31/18 06:26 Neutrophils % 64.3 % (40.0-80.0) 12/31/18 06:26 Lymphocytes % 26.4 % (20.0-50.0) 12/31/18 06:26 Monocytes % 5.5 % (2.0-10.0) 12/31/18 06:26 Eosinophils % 2.8 % (0.0-5.0) 12/31/18 06:26 Basophils % 1.0 % (0.0-2.0) 12/31/18 06:26 Sodium 139 mEq/L (136-145) 12/31/18 06:26 Potassium 4.7 mEq/L (3.5-5.1) 12/31/18 06:26 Chloride 109 mEq/L (98-107) H 12/31/18 06:26 Carbon Dioxide 20.3 mEq/L (21.0-31.0) L 12/31/18 06:26 Anion Gap 14.4 (7.0-16.0) 12/31/18 06:26 BUN 36 mg/dL (7-25) H 12/31/18 06:26 Creatinine 2.7 mg/dL (0.7-1.3) H 12/31/18 06:26 Est GFR ( Amer) TNP 12/31/18 06:26 Est GFR (Non-Af Amer) TNP 12/31/18 06:26 BUN/Creatinine Ratio 13.3 12/31/18 06:26 Glucose 177 mg/dL (70-105) H 12/31/18 06:26 POC Glucose 119 MG/DL (70 - 105) H 12/31/18 05:02 Uric Acid 4.1 mg/dL (4.4-7.6) L 12/31/18 06:26 Calcium 8.2 mg/dL (8.6-10.3) L 12/31/18 06:26 Phosphorus 3.4 mg/dL (2.5-5.0) 12/31/18 06:26 Magnesium 2.5 mg/dL (1.9-2.7) 12/31/18 06:26 Total Bilirubin 0.6 mg/dL (0.3-1.0) 12/29/18 06:01 AST 16 U/L (13-39) 12/29/18 06:01 ALT 9 U/L (7-52) 12/29/18 06:01 Alkaline Phosphatase 56 U/L (34-104) 12/29/18 06:01 Troponin I 0.01 ng/mL (0.01-0.05) 12/28/18 15:12 Total Protein 6.6 gm/dL (6.0-8.3) 12/29/18 06:01 Albumin 3.9 gm/dL (4.2-5.5) L 12/29/18 06:01 Globulin 2.7 gm/dL 12/29/18 06:01 Albumin/Globulin Ratio 1.4 (1.0-1.8) 12/29/18 06:01 Triglycerides 85 mg/dL (<150) 12/29/18 06:01 Cholesterol 164 mg/dL (<200) 12/29/18 06:01 LDL Cholesterol Direct 74 mg/dL (75-193) L 12/29/18 06:01 HDL Cholesterol 75 mg/dL (23-92) 12/29/18 06:01 TSH 1.16 uIU/ml (0.34-5.60) 12/28/18 15:12 Urine Source CLEAN C 12/29/18 08:15 Urine Color YELLOW 12/29/18 08:15 Urine Clarity CLEAR (CLEAR) 12/29/18 08:15 Urine pH 6.0 (4.6 - 8.0) 12/29/18 08:15 Ur Specific [place] 1.025 (1.005-1.030) 12/29/18 08:15 Urine Protein 100 mg/dL (NEGATIVE) H 12/29/18 08:15 Urine Glucose (UA) 500 mg/dL (NEGATIVE) H 12/29/18 08:15 Urine Ketones NEGATIVE mg/dL (NEGATIVE) 12/29/18 08:15 Urine Blood TRACE (NEGATIVE) 12/29/18 08:15 Urine Nitrate NEGATIVE (NEGATIVE) 12/29/18 08:15 Urine Bilirubin NEGATIVE (NEGATIVE) 12/29/18 08:15 Urine Urobilinogen 0.2 E.U./dL (0.2 - 1.0) 12/29/18 08:15 Ur Leukocyte Esterase NEGATIVE (NEGATIVE) 12/29/18 08:15 Urine RBC 0-2 /hpf (0-5) H 12/29/18 08:15 Urine WBC 0-2 /hpf (0-5) 12/29/18 08:15 Ur Epithelial Cells RARE /lpf (FEW) 12/29/18 08:15 Urine Bacteria NONE SEEN /hpf (NONE SEEN) 12/29/18 08:15 Urine Creatinine 102.0 mg/dl (39.0-259.0) 12/29/18 08:15 Salicylates < 25.0 mg/L (30.0-100.0) L 12/28/18 15:12 Urine Opiates Screen NEGATIVE (NEGATIVE) 12/29/18 08:15 Urine Methadone Screen NEGATIVE (NEGATIVE) 12/29/18 08:15 Acetaminophen < 10.0 ug/mL (10.0-30.0) L 12/28/18 15:12 Ur Barbiturates Screen NEGATIVE (NEGATIVE) 12/29/18 08:15 Ur Tricyclics Screen NEGATIVE (NEGATIVE) 12/29/18 08:15 Ur Phencyclidine Scrn NEGATIVE (NEGATIVE) 12/29/18 08:15 Amphetamines Screen NEGATIVE (NEGATIVE) 12/29/18 08:15 U Methamphetamines Scrn NEGATIVE (NEGATIVE) 12/29/18 08:15 U Benzodiazepines Scrn POSITIVE (NEGATIVE) H 12/29/18 08:15 U Cocaine Metab Screen NEGATIVE (NEGATIVE) 12/29/18 08:15 U Cannabinoids Screen NEGATIVE (NEGATIVE) 12/29/18 08:15 Ethyl Alcohol < 10 mg/dL (0-10) 12/28/18 15:12 Serum Ketones NEGATIVE (NEGATIVE) 12/28/18 15:12 - Physical Exam Vitals and I&O: Vital Signs Temp 97.3 F 12/31/18 08:14 Pulse 59 12/31/18 09:42 Resp 18 12/31/18 08:14 BP 152/79 12/31/18 09:42 Pulse Ox 98 12/31/18 08:14 Intake & Output 12/30/18 12/31/18 12/31/18 18:59 06:59 18:59 Intake Total 120 400 Balance 120 400 Weight (lbs) 56.699 kg 56.699 kg Intake: Oral 120 400 Other: # Voids 6 2 # Bowel Movements 0 1 Weight Source Bedscale Bedscale Active Medications: Current Medications Dextrose (D50w) 50 ml IVP PRN PRN PRN Reason: Blood Glucose less than 70 Stop: 02/27/19 01:25 Last Admin: 12/30/18 16:19 Dose: 50 ml Dextrose (Glutose 40%) 18.75 gm PO PRN PRN PRN Reason: BS below 70 & tolerate po Stop: 02/27/19 01:25 Docusate Sodium (Colace) 100 mg PO DAILY PRN PRN Reason: Constipation Stop: 02/26/19 23:23 Donepezil HCl (Aricept) 10 mg PO HS NHUNG Stop: 02/27/19 20:59 Last Admin: 12/30/18 20:38 Dose: 10 mg Escitalopram Oxalate (Lexapro) 10 mg PO DAILY NHUNG; Protocol Stop: 02/27/19 08:59 Last Admin: 12/31/18 09:41 Dose: 10 mg Fenofibrate (Tricor) 134 mg PO DAILY [facility]UNG Stop: 02/28/19 08:59 Last Admin: 02/15/19 09:41 Dose: 134 mg Glipizide (Glucotrol) 10 mg PO BID [facility] Stop: 02/27/19 08:59 Last Admin: 12/31/18 09:41 Dose: 10 mg Glucagon (Glucagen) 1 mg IM PRN PRN PRN Reason: Blood Glucose less than 70 Stop: 02/27/19 01:25 Dextrose/Sodium Chloride (D5-0.45ns) 1,000 mls @ 75 mls/hr IV .[id number] [facility] Stop: 02/27/19 18:29 Last Admin: 12/30/18 06:56 Dose: 75 mls/hr Insulin Glargine (Lantus Insulin) 5 units SUBQ DAILY [facility] Stop: 02/28/19 11:59 Last Admin: 12/31/18 09:43 Dose: 5 units Insulin Human Lispro (Humalog Insulin Sliding Scale) 0 units SUBQ ACHS [facility]; Protocol Stop: 02/27/19 07:29 Last Admin: 12/31/18 06:30 Dose: Not Given Levetiracetam (Keppra) 500 mg PO BID [facility] Stop: 02/26/19 23:29 Last Admin: 12/31/18 09:42 Dose: 500 mg Lorazepam (Ativan) 0.5 mg PO BID PRN; Protocol PRN Reason: Anxiety Stop: 01/04/19 23:25 Memantine (Namenda) 10 mg PO BIDPC [facility] Stop: 02/27/19 08:29 Last Admin: 12/30/18 16:34 Dose: 10 mg Metoprolol Succinate (Toprol Xl) 12.5 mg PO BID [facility] Stop: 02/28/19 16:59 Last Admin: 12/31/18 09:42 Dose: 12.5 mg Miscellaneous (Clinical Monitoring) 1 ea MC DAILY PRN PRN Reason: RENAL DOSING Stop: 02/27/19 15:00 Quetiapine Fumarate (Seroquel) 12.5 mg PO HS [facility]; Protocol Stop: 02/27/19 20:59 Last Admin: 12/30/18 20:38 Dose: 12.5 mg General: NAD HEENT: NC/AT, PERRLA Neck: Supple, No JVD, No LAD Lungs: CTAB Cardiovascular: RRR, Normal S1, Normal S2, without murmur Abdomen: soft, non-tender, non-distended, positive bowel sound Internal Medicine Assmt/Plan - Assessment Assessment: [id number]. LIKELY A/CRI 2RY TO DIABETIC/HYPERTENSIVE NEPHROPATHY-IMPROVING, CONT WITH GENTLE HYDRATION HYPONATREMIA-RESOLVED. HX OF ANEMIA LIKELY 2RY TO CRI HX OF DYSLIPIDIMIA HX OF SEIZURE D/O-ASYMPTOMATIC HX OF DEMENTIA WITHOUT BEHAVIORAL D/O HX OF ANXIETY AND DEPRESSION WITH RECENT DEPRESSIVE MOOD - Plan Plan: CONT WITH IVF-NACL@ 75CC/HOUR CONT WITH GLIPIZIDE 10MG BID, LEVEMIR FOLLOW HGA1C MONITOR RENAL FUNCTION, FOLLOW UCR/PROT CONT WITH OTHER MEDS SCHEDULED NEPHRO/PSYCH FU PT EVAL Nutritional Asmnt/Malnutr-PDOC - Dietary Evaluation Malnutrition Findings (Please click <Entered> for more info): Nutritional Asmnt/Malnutrition Start: 12/29/18 15: 42 Text: Status: Complete Freq: Protocol: Document 12/29/18 15:42 LCHENG (Rec: 12/29/18 15:55 [email or web address]) Nutritional Asmnt/Malnutrition Patient General Information Nutritional Screening High Risk Diagnosis diabetes uncontrolled Pertinent Medical Hx/Surgical Hx HTN, hyslipidemia, PUD/GERD, seizure, dementia, depression Subjective Information Pt seen sitting up in bed at time of visit, awake and somewhat confused. Food preference given to RD. Per EMR, PO intake 100%. Gluocse 429 at admission noted. Current Diet Order/ Nutrition Support CCHO Pertinent Medications colace, glucotrol, novolog, levmire, seroquel, nacl 0.9% Pertinent Labs 12/29 BUN 39, Cr 3.2, Gluocse 188, POC 167-209 Nutritional Hx/Data Height 1.7 m Height (Calculated Centimeters) 170.2 Current Weight (lbs) 56.699 kg Weight (Calculated Kilograms) 56.7 Weight (Calculated Grams) 14401.0 [place] Body Weight 148 Body Mass Index (BMI) 19.5 GI Symptoms GI Symptoms None Last BM not indicated Difficult in: None Skin Integrity/Comment: intact Current %PO Good (75-100%) Estimated Nutritional Goals BEE in Kcals: Using Current wt Calories/Kcals/Kg 27-32 Kcals Calculated 8865-0491 Protein: Using Current wt Protein g/k-1.2 Protein Calculated 57-68 Fluid: ml 1539-1824ml (1ml/kcal) Nutritional Problem 1. Problem Problem altered nutrition related labs Etiology hyperglycemia Signs/Symptoms: Gluocse 188, POC 167-209 Malnutrition Alert Is there a minimum of two criteria No selected? Query Text:Check all the applicable criteria. A minimum of two criteria are recommended for diagnosis of either severe or non-severe malnutrition. Malnutrition Related to Morbid Obesity Malnutrition related to morbid obesity No Intervention/Recommendation Comments 1. Continue with [facility] diet as ordered. 2. Monitor PO intake, wt, labs and skin integrity 3. F/U as moderate risk in 3-5 days Expected Outcomes/Goals Expected Outcomes/Goals 1. PO intake to meet at least 75% of nutritional needs. 2. Wt stability, skin to remain intact, labs to approach WNL.
--- NOTE | 2018-12-31 14:33 | General Progress Note ---
Subjective - Review of Systems Service Date: 12/31/18 Subjective: alert, verbal, comfortable Objective - Results Result Diagrams: 12/31/18 06:26 12/31/18 06:26 Recent Labs: Laboratory Last Values WBC 7.4 Th/cmm (4.8-10.8) 12/31/18 06:26 RBC 3.86 Mil/cmm (3.80-5.80) 12/31/18 06:26 Hgb 11.9 gm/dL (12-16) L 12/31/18 06:26 Hct 36.1 % (41.0-60) L 12/31/18 06:26 MCV 93.6 fl (80-99) 12/31/18 06:26 MCH 30.9 pg (27.0-31.0) 12/31/18 06:26 MCHC Differential 33.0 pg (28.0-36.0) 12/31/18 06:26 RDW 12.1 % (11.5-20.0) 12/31/18 06:26 Plt Count 180 Th/cmm (150-400) 12/31/18 06:26 MPV 6.2 fl 12/31/18 06:26 Neutrophils % 64.3 % (40.0-80.0) 12/31/18 06:26 Lymphocytes % 26.4 % (20.0-50.0) 12/31/18 06:26 Monocytes % 5.5 % (2.0-10.0) 12/31/18 06:26 Eosinophils % 2.8 % (0.0-5.0) 12/31/18 06:26 Basophils % 1.0 % (0.0-2.0) 12/31/18 06:26 Sodium 139 mEq/L (136-145) 12/31/18 06:26 Potassium 4.7 mEq/L (3.5-5.1) 12/31/18 06:26 Chloride 109 mEq/L (98-107) H 12/31/18 06:26 Carbon Dioxide 20.3 mEq/L (21.0-31.0) L 12/31/18 06:26 Anion Gap 14.4 (7.0-16.0) 12/31/18 06:26 BUN 36 mg/dL (7-25) H 12/31/18 06:26 Creatinine 2.7 mg/dL (0.7-1.3) H 12/31/18 06:26 Est GFR ( Amer) TNP 12/31/18 06:26 Est GFR (Non-Af Amer) TNP 12/31/18 06:26 BUN/Creatinine Ratio 13.3 12/31/18 06:26 Glucose 177 mg/dL (70-105) H 12/31/18 06:26 POC Glucose 365 MG/DL (70 - 105) H 12/31/18 11:38 Uric Acid 4.1 mg/dL (4.4-7.6) L 12/31/18 06:26 Calcium 8.2 mg/dL (8.6-10.3) L 12/31/18 06:26 Phosphorus 3.4 mg/dL (2.5-5.0) 12/31/18 06:26 Magnesium 2.5 mg/dL (1.9-2.7) 12/31/18 06:26 Total Bilirubin 0.6 mg/dL (0.3-1.0) 12/29/18 06:01 AST 16 U/L (13-39) 12/29/18 06:01 ALT 9 U/L (7-52) 12/29/18 06:01 Alkaline Phosphatase 56 U/L (34-104) 12/29/18 06:01 Troponin I 0.01 ng/mL (0.01-0.05) 12/28/18 15:12 Total Protein 6.6 gm/dL (6.0-8.3) 12/29/18 06:01 Albumin 3.9 gm/dL (4.2-5.5) L 12/29/18 06:01 Globulin 2.7 gm/dL 12/29/18 06:01 Albumin/Globulin Ratio 1.4 (1.0-1.8) 12/29/18 06:01 Triglycerides 85 mg/dL (<150) 12/29/18 06:01 Cholesterol 164 mg/dL (<200) 12/29/18 06:01 LDL Cholesterol Direct 74 mg/dL (75-193) L 12/29/18 06:01 HDL Cholesterol 75 mg/dL (23-92) 12/29/18 06:01 TSH 1.16 uIU/ml (0.34-5.60) 12/28/18 15:12 Urine Source CLEAN C 12/29/18 08:15 Urine Color YELLOW 12/29/18 08:15 Urine Clarity CLEAR (CLEAR) 12/29/18 08:15 Urine pH 6.0 (4.6 - 8.0) 12/29/18 08:15 Ur Specific [place] 1.025 (1.005-1.030) 12/29/18 08:15 Urine Protein 100 mg/dL (NEGATIVE) H 12/29/18 08:15 Urine Glucose (UA) 500 mg/dL (NEGATIVE) H 12/29/18 08:15 Urine Ketones NEGATIVE mg/dL (NEGATIVE) 12/29/18 08:15 Urine Blood TRACE (NEGATIVE) 12/29/18 08:15 Urine Nitrate NEGATIVE (NEGATIVE) 12/29/18 08:15 Urine Bilirubin NEGATIVE (NEGATIVE) 12/29/18 08:15 Urine Urobilinogen 0.2 E.U./dL (0.2 - 1.0) 12/29/18 08:15 Ur Leukocyte Esterase NEGATIVE (NEGATIVE) 12/29/18 08:15 Urine RBC 0-2 /hpf (0-5) H 12/29/18 08:15 Urine WBC 0-2 /hpf (0-5) 12/29/18 08:15 Ur Epithelial Cells RARE /lpf (FEW) 12/29/18 08:15 Urine Bacteria NONE SEEN /hpf (NONE SEEN) 12/29/18 08:15 Urine Creatinine 102.0 mg/dl (39.0-259.0) 12/29/18 08:15 Salicylates < 25.0 mg/L (30.0-100.0) L 12/28/18 15:12 Urine Opiates Screen NEGATIVE (NEGATIVE) 12/29/18 08:15 Urine Methadone Screen NEGATIVE (NEGATIVE) 12/29/18 08:15 Acetaminophen < 10.0 ug/mL (10.0-30.0) L 12/28/18 15:12 Ur Barbiturates Screen NEGATIVE (NEGATIVE) 12/29/18 08:15 Ur Tricyclics Screen NEGATIVE (NEGATIVE) 12/29/18 08:15 Levetiracetam 22.8 ug/mL (10.0-40.0) 12/28/18 15:12 Ur Phencyclidine Scrn NEGATIVE (NEGATIVE) 12/29/18 08:15 Amphetamines Screen NEGATIVE (NEGATIVE) 12/29/18 08:15 U Methamphetamines Scrn NEGATIVE (NEGATIVE) 12/29/18 08:15 U Benzodiazepines Scrn POSITIVE (NEGATIVE) H 12/29/18 08:15 U Cocaine Metab Screen NEGATIVE (NEGATIVE) 12/29/18 08:15 U Cannabinoids Screen NEGATIVE (NEGATIVE) 12/29/18 08:15 Ethyl Alcohol < 10 mg/dL (0-10) 12/28/18 15:12 Serum Ketones NEGATIVE (NEGATIVE) 12/28/18 15:12 - Physical Exam Vitals and I&O: Vital Signs Temp 97.8 F 12/31/18 11:35 Pulse 75 12/31/18 11:35 Resp 18 12/31/18 11:35 BP 113/73 12/31/18 11:35 Pulse Ox 98 12/31/18 11:35 Intake & Output 12/30/18 12/31/18 12/31/18 18:59 06:59 18:59 Intake Total 120 400 Balance 120 400 Weight (lbs) 56.699 kg 56.699 kg Intake: Oral 120 400 Other: # Voids 6 2 # Bowel Movements 0 1 Weight Source Bedscale Bedscale Active Medications: Current Medications Dextrose (D50w) 50 ml IVP PRN PRN PRN Reason: Blood Glucose less than 70 Stop: 02/27/19 01:25 Last Admin: 12/30/18 16:19 Dose: 50 ml Dextrose (Glutose 40%) 18.75 gm PO PRN PRN PRN Reason: BS below 70 & tolerate po Stop: 02/27/19 01:25 Docusate Sodium (Colace) 100 mg PO DAILY PRN PRN Reason: Constipation Stop: 02/26/19 23:23 Donepezil HCl (Aricept) 10 mg PO HS NHUNG Stop: 02/27/19 20:59 Last Admin: 12/30/18 20:38 Dose: 10 mg Escitalopram Oxalate (Lexapro) 10 mg PO DAILY NHUNG; Protocol Stop: 02/27/19 08:59 Last Admin: 12/31/18 09:41 Dose: 10 mg Fenofibrate (Tricor) 134 mg PO DAILY NHUNG Stop: 02/28/19 08:59 Last Admin: 12/31/18 09:41 Dose: 134 mg Glipizide (Glucotrol) 10 mg PO BID [facility] Stop: 02/27/19 08:59 Last Admin: 12/31/18 09:41 Dose: 10 mg Glucagon (Glucagen) 1 mg IM PRN PRN PRN Reason: Blood Glucose less than 70 Stop: 02/27/19 01:25 Sodium Chloride (Nacl 0.9%) 1,000 mls @ 75 mls/hr IV .[id number] [facility] Stop: 03/01/19 10:02 Insulin Glargine (Lantus Insulin) 5 units SUBQ DAILY [facility] Stop: 02/28/19 11:59 Last Admin: 12/31/18 09:43 Dose: 5 units Insulin Human Lispro (Humalog Insulin Sliding Scale) 0 units SUBQ ACHS [facility]; Protocol Stop: 02/27/19 07:29 Last Admin: 12/31/18 12:23 Dose: 15 units Levetiracetam (Keppra) 500 mg PO BID [facility] Stop: 02/26/19 23:29 Last Admin: 12/31/18 09:42 Dose: 500 mg Lorazepam (Ativan) 0.5 mg PO BID PRN; Protocol PRN Reason: Anxiety Stop: 01/04/19 23:25 Memantine (Namenda) 10 mg PO BIDPC [facility] Stop: 02/27/19 08:29 Last Admin: 12/30/18 16:34 Dose: 10 mg Metoprolol Succinate (Toprol Xl) 12.5 mg PO BID [facility] Stop: 02/28/19 16:59 Last Admin: 12/31/18 09:42 Dose: 12.5 mg Miscellaneous (Clinical Monitoring) 1 ea MC DAILY PRN PRN Reason: RENAL DOSING Stop: 02/27/19 15:00 Quetiapine Fumarate (Seroquel) 12.5 mg PO HS [facility]; Protocol Stop: 02/27/19 20:59 Last Admin: 12/30/18 20:38 Dose: 12.5 mg General: Alert, No acute distress HEENT: Atraumatic, Mucous membr. moist/pink Neck: Supple, +2 carotid pulse wo bruit Cardiovascular: Regular rate, Normal S1, Normal S2 Lungs: Normal air movement, Other (few rhonchi) Abdomen: Bowel sounds, Soft Extremities: no Edema Neurological: Normal speech, Sensation intact Skin: no Rash Psych/Mental Status: Mood NL Assessment/Plan - Assessment Assessment: CKD T2DM OOC W/ CKD Ess Htn W/ CKD Dyslipidemia Dementia Depression/Anxiety Epilepsy - Plan Plan: Lab - Result Diagrams 12/31/18 06:26 12/31/18 06:26 Current Medications Dextrose (D50w) 50 ml IVP PRN PRN PRN Reason: Blood Glucose less than 70 Stop: 02/27/19 01:25 Last Admin: 12/30/18 16:19 Dose: 50 ml Dextrose (Glutose 40%) 18.75 gm PO PRN PRN PRN Reason: BS below 70 & tolerate po Stop: 02/27/19 01:25 Docusate Sodium (Colace) 100 mg PO DAILY PRN PRN Reason: Constipation Stop: 02/26/19 23:23 Donepezil HCl (Aricept) 10 mg PO HS [facility] Stop: 02/27/19 20:59 Last Admin: 12/30/18 20:38 Dose: 10 mg Escitalopram Oxalate (Lexapro) 10 mg PO DAILY [facility]; Protocol Stop: 02/27/19 08:59 Last Admin: 12/31/18 09:41 Dose: 10 mg Fenofibrate (Tricor) 134 mg PO DAILY [facility] Stop: 02/28/19 08:59 Last Admin: 12/31/18 09:41 Dose: 134 mg Glipizide (Glucotrol) 10 mg PO BID [facility] Stop: 02/27/19 08:59 Last Admin: 12/31/18 09:41 Dose: 10 mg Glucagon (Glucagen) 1 mg IM PRN PRN PRN Reason: Blood Glucose less than 70 Stop: 02/27/19 01:25 Sodium Chloride (Nacl 0.9%) 1,000 mls @ 75 mls/hr IV .[id number] [facility] Stop: 03/01/19 10:02 Insulin Glargine (Lantus Insulin) 5 units SUBQ DAILY [facility] Stop: 02/28/19 11:59 Last Admin: 12/31/18 09:43 Dose: 5 units Insulin Human Lispro (Humalog Insulin Sliding Scale) 0 units SUBQ ACHS [facility]; Protocol Stop: 02/27/19 07:29 Last Admin: 12/31/18 12:23 Dose: 15 units Levetiracetam (Keppra) 500 mg PO BID [facility] Stop: 02/26/19 23:29 Last Admin: 12/31/18 09:42 Dose: 500 mg Lorazepam (Ativan) 0.5 mg PO BID PRN; Protocol PRN Reason: Anxiety Stop: 01/04/19 23:25 Memantine (Namenda) 10 mg PO BIDPC NHUNG Stop: 02/27/19 08:29 Last Admin: 12/30/18 16:34 Dose: 10 mg Metoprolol Succinate (Toprol Xl) 12.5 mg PO BID NHUNG Stop: 02/28/19 16:59 Last Admin: 12/31/18 09:42 Dose: 12.5 mg Miscellaneous (Clinical Monitoring) 1 ea MC DAILY PRN PRN Reason: RENAL DOSING Stop: 02/27/19 15:00 Quetiapine Fumarate (Seroquel) 12.5 mg PO HS NHUNG; Protocol Stop: 02/27/19 20:59 Last Admin: 12/30/18 20:38 Dose: 12.5 mg Lab - Result Diagrams 12/31/18 06:26 12/31/18 06:26 kidney fnc slightly improved continue gentle hydration BS under better control f/u electrolytes Nutritional Asmnt/Malnutr-PDOC - Dietary Evaluation Malnutrition Findings (Please click <Entered> for more info): Nutritional Asmnt/Malnutrition Start: 12/29/18 15: 42 Text: Status: Complete Freq: Protocol: Document 12/29/18 15:42 LCHENG (Rec: 12/29/18 15:55 LCHENG [email or web address]) Nutritional Asmnt/Malnutrition Patient General Information Nutritional Screening High Risk Diagnosis diabetes uncontrolled Pertinent Medical Hx/Surgical Hx HTN, hyslipidemia, PUD/GERD, seizure, dementia, depression Subjective Information Pt seen sitting up in bed at time of visit, awake and somewhat confused. Food preference given to RD. Per EMR, PO intake 100%. Gluocse 429 at admission noted. Current Diet Order/ Nutrition Support CCHO Pertinent Medications colace, glucotrol, novolog, levmire, seroquel, nacl 0.9% Pertinent Labs 12/29 BUN 39, Cr 3.2, Gluocse 188, POC 167-209 Nutritional Hx/Data Height 1.7 m Height (Calculated Centimeters) 170.2 Current Weight (lbs) 56.699 kg Weight (Calculated Kilograms) 56.7 Weight (Calculated Grams) 24563.0 [place] Body Weight 148 Body Mass Index (BMI) 19.5 GI Symptoms GI Symptoms None Last BM not indicated Difficult in: None Skin Integrity/Comment: intact Current %PO Good (75-100%) Estimated Nutritional Goals BEE in Kcals: Using Current wt Calories/Kcals/Kg 27-32 Kcals Calculated 6406-6716 Protein: Using Current wt Protein g/k-1.2 Protein Calculated 57-68 Fluid: ml 1539-1824ml (1ml/kcal) Nutritional Problem 1. Problem Problem altered nutrition related labs Etiology hyperglycemia Signs/Symptoms: Gluocse 188, POC 167-209 Malnutrition Alert Is there a minimum of two criteria No selected? Query Text:Check all the applicable criteria. A minimum of two criteria are recommended for diagnosis of either severe or non-severe malnutrition. Malnutrition Related to Morbid Obesity Malnutrition related to morbid obesity No Intervention/Recommendation Comments 1. [facility] with [facility] diet as ordered. 2. Monitor PO intake, wt, labs and skin integrity 3. F/U as moderate risk in 3-5 days Expected Outcomes/Goals Expected Outcomes/Goals 1. PO intake to meet at least 75% of nutritional needs. 2. Wt stability, skin to remain intact, labs to approach WNL.
--- NOTE | 2019-01-02 14:22 | Discharge Summary ---
DATE OF DISCHARGE: 12/31/2018 ADMITTING DIAGNOSES: 1. Diabetes out of control. 2. Acute on chronic renal insufficiency. 3. Dehydration. 4. Hyponatremia. 5. Proteinuria. 6. Anemia. 7. Acute depression. SECONDARY DIAGNOSES: Include history of type 2 diabetes, history of hyperlipidemia, history of hypertension, history of seizure disorder, and history of depression/anxiety. DISCHARGE DIAGNOSES: 1. Diabetes out of control-- improved. 2. Acute on chronic renal insufficiency -- improved. 3. Hyponatremia -- improved. 4. Dehydration -- improved. 5. Acute depression-stable, cleared by psych. CONSULTANTS: Dr. Horowitz. MAJOR PROCEDURES: There was a renal ultrasound done on 12/29/2018 showing no evidence of hydronephrosis, mild increased echogenicity of the kidneys, which may be due to underlying medical renal disease, mild urinary bladder wall thickening. BRIEF HOSPITAL COURSE: This is a 78-year-old gentleman who resides at [facility] who was referred by his primary care doctor for possible Geropsych admission given acute depressive symptomatology which was not clear upon admission. The patient denied being depressed; however, at the ER, his glucose level was noted to be elevated at 429 and his BUN and creatinine were 42/3.4. He was admitted to the medical surgical floor where he was placed on light IV hydration as well as detemir insulin at 10 units at bedtime and regular sliding scale. He underwent a renal workup and was evaluated by Nephrology. The patient was also seen by Psychiatry given his depression. His glucose level gradually improved going from low 300s to 140-200 range by hospital day #2. By the 12/30/2018, his glucose was around the 140 range and his renal function also remained stable throughout his hospital stay. Clinically speaking, the patient remained stable with good p.o. intake and again he denied any symptoms of depression while he was hospitalized. CONDITION ON DISCHARGE: Stable. DISCHARGE MEDICATIONS: Aricept 10 mg at bedtime, Lexapro 10 mg every day, TriCor 130 mg every day, Glucotrol 10 mg b.i.d. with meals, Seroquel 12.5 at bedtime, metoprolol 12.5 b.i.d., Namenda 10 mg b.i.d., Ativan 0.5 mg twice a day p.r.n. for anxiety, Keppra 500 mg b.i.d., lispro insulin sliding scale, Lantus 5 units at bedtime. DISPOSITION: The patient was discharged back to [facility] under the care of Dr. Elkins. JOB# [id number] MTDD
== END 2018-12-31 18:20 | DRG 638 ==
LOC: ER 14:40 → MSI 18:56
PROVIDERS: ADMIT Internal Medicine; ATTEND Internal Medicine
DX: E11.65 Type 2 diabetes mellitus with hyperglycemia (principal); E87.1 Hypo-osmolality and hyponatremia; F03.91 Unspecified dementia, unspecified severity, with behavioral disturbance; F33.3 Major depressive disorder, recurrent, severe with psychotic symptoms; Z68.1 Body mass index [BMI] 19.9 or less, adult; E78.5 Hyperlipidemia, unspecified; R80.9 Proteinuria, unspecified; G40.909 Epilepsy, unspecified, not intractable, without status epilepticus; N18.3 Chronic kidney disease, stage 3 (moderate); K21.9 Gastro-esophageal reflux disease without esophagitis; E83.51 Hypocalcemia; G47.00 Insomnia, unspecified; D63.1 Anemia in chronic kidney disease; E11.22 Type 2 diabetes mellitus with diabetic chronic kidney disease; I12.9 Hypertensive chronic kidney disease with stage 1 through stage 4 chronic kidney disease, or unspecified chronic kidney disease; Z82.49 Family history of ischemic heart disease and other diseases of the circulatory system
CPT/HCPCS: 36415-UA; 71045-TC; 76770-TC; 80048-TC; 80053-TC; 80061-TC; 80299-90; 80307; 80320-TC; 80329-TC; 81001-TC; 82010-TC; 82570-TC; 82948-90; 83036-90; 83735-TC; 84100-TC; 84156-TC; 84443-TC; 84484-TC; 84550-TC; 85025-TC; 86592-TC; 93005; J1815; J7030; J7799; X3904; Z7610